=== PATIENT | female | born 1960 | race Caucasian/White ===

== ENCOUNTER 2023-06-11 07:30 | Outpatient (RCR) | payer BC, SELFPAY | END 2023-10-09 23:59 | disposition home or self-care (01) | PROVIDERS: PCP Family Medicine; Visit Provider Student in an Organized Health Care Education/Training Program | DX: S76.111A Strain of right quadriceps muscle, fascia and tendon, initial encounter (principal); M25.551 Pain in right hip; G89.29 Other chronic pain; R53.1 Weakness; Z51.89 Encounter for other specified aftercare; M70.71 Other bursitis of hip, right hip | CPT/HCPCS: 97110; 97140; 97161 ==

== ENCOUNTER 2024-02-08 13:00 | Outpatient (RCR) | payer MEDICARE, BC, SELFPAY | END 2024-06-07 23:59 | disposition home or self-care (01) | PROVIDERS: PCP Family Medicine; Visit Provider Family Medicine | DX: M76.01 Gluteal tendinitis, right hip (principal); M70.61 Trochanteric bursitis, right hip; M25.551 Pain in right hip; G89.29 Other chronic pain; R29.898 Other symptoms and signs involving the musculoskeletal system; Z51.89 Encounter for other specified aftercare | CPT/HCPCS: 97110; 97112; 97140; 97161 ==

== ENCOUNTER 2025-03-13 13:00 | Outpatient (RCR) | payer MEDICARE, BC, SELFPAY | END 2025-03-26 12:41 | disposition home or self-care (01) | PROVIDERS: PCP Family Medicine; Visit Provider Family Medicine | DX: M25.551 Pain in right hip (principal); Z51.89 Encounter for other specified aftercare | CPT/HCPCS: 97110; 97112; 97161 ==